=== PATIENT | female | born 2000 | race Caucasian/White ===

== ENCOUNTER 2020-10-05 21:45 | Emergency (ER) | payer BC ==
[~2020-10-05] VITALS: Ht 154.9 cm; Wt 72.6 kg
[2020-10-05 21:51] VITALS: Ht 154.9 cm; Wt 72.6 kg
[2020-10-05 22:29] LABS: BASOPHIL % 0.3 % (0-2); PLATELET COUNT 293 x10^3mcL (130-400); RED CELL DISTRIBUTION WIDTH 13.4 % (11.5-14.5)
[2020-10-05 22:50] LABS: CALCIUM 8.9 mg/dL (8.5-10.1); CARBON DIOXIDE 32.3 mmol/L (21-32); CHLORIDE SERUM 104 mmol/L (98-107); CREATININE SERUM 0.7 mg/dL (0.6-1.0); GFR1 > 60 mL/min; GLUCOSE SERUM 93 mg/dL (74-106); POTASSIUM SERUM 4.1 mmol/L (3.5-5.1); SODIUM SERUM 140 mmol/L (136-145)
[2020-10-05 22:55] LABS: AMPHETAMINE QUAL UR NONE DETECTED (See below)
[2020-10-05 22:55] LABS: ALBUMIN 4.2 g/dL (3.4-5.0); ALKALINE PHOSPHATASE 62 U/L (46-116); ALT/SGPT 31 U/L (14-59); AST/SGOT 16 U/L (15-37); BILIRUBIN TOTAL 0.8 mg/dL (0.20-1.00); TOTAL PROTEIN, SERUM 7.6 g/dL (6.4-8.2)
[2020-10-06 00:41] VITALS: BP 105/54
== END 2020-10-06 00:41 | disposition home or self-care (01) ==
LOC: ED 21:45
PROVIDERS: Emergency Medicine
DX: F31.9 Bipolar disorder, unspecified (principal); R51.9 Headache, unspecified